=== PATIENT | male | born 1960 | race African-American/Black ===

== ENCOUNTER 2018-12-30 02:45 | Emergency (ER) | payer OTHER ==
[~2018-12-30] VITALS: Ht 157.5 cm; Wt 82.0 kg
[2018-12-30] MEDS ORDERED: METHYLPREDNISOLONE SOD SUCC 125 MG/2 ML VIAL IV STA (03:06)
[2018-12-30] MEDS ORDERED: MAGNESIUM 2 G PREMIX 50 ML IV STA (03:06)
[2018-12-30] MEDS ORDERED: ALBUTEROL (0.083%) 2.5MG/3ML NEB HHN STA (03:06)
[2018-12-30] MEDS ORDERED: IPRATROPIUM BROMIDE (0.02%) 0.5MG/2.5ML NEB HHN STA (03:06)
[2018-12-30 04:26] LABS: HEMATOCRIT 43.1 % (42.0-52.0); HEMOGLOBIN 13.9 g/dL (14.0-18.0); MEAN CORPUSCULAR HEMOGLOBIN 29.3 pg (28.0-32.0); MEAN CORPUSCULAR VOLUME 90.7 fL (80.0-94.0); PLATELET 215 x1000/uL (130-400); RED BLOOD CELL COUNT 4.75 mill/uL (4.7-6.1); RED CELL DISTRIBUTION WIDTH 13.7 % (11.6-14.6)
[2018-12-30 04:33] LABS: CHLORIDE 107 mEq/L (98-107)
[2018-12-30] MEDS ORDERED: LEVOFLOXACIN 750MG PREMIX 150 ML IV SCH (05:00)
[2018-12-30] MEDS ORDERED: SODIUM CHLORIDE 0.9% 1000ML BAG (SEPSIS BOLUS) IV ONE (08:15)
[2018-12-30 08:35] VITALS: BP 106/67
== END 2018-12-30 08:52 | disposition short-term general hospital (02) ==
LOC: ER 02:45 → EDBEDREQTM 05:10 → EDBEDREQ 05:10 → ER 08:52 → CANBEDREQ 09:59
DX: R06.02 Shortness of breath (principal); R06.2 Wheezing; J44.9 Chronic obstructive pulmonary disease, unspecified; F17.200 Nicotine dependence, unspecified, uncomplicated
CPT/HCPCS: 36415; 71045; 80053; 83605; 85027; 87040; 93005; 94640; 96365; 96366; 96367; 96375; 99291; J1956; J2930; J3475; J7030; J7611

== ENCOUNTER 2019-11-27 00:41 | Emergency (ER) | payer OTHER ==
[~2019-11-27] VITALS: Ht 172.7 cm; Wt 87.0 kg
[2019-11-27] MEDS ORDERED: HYDROCODONE/ACETAMINOPHEN 5/325MG TABLET PO ONE (01:15)
[2019-11-27 01:29] LABS: BASOPHILS % 1.3 % (0.0-2.0); EOSINOPHILS % 3.7 % (0.0-5.0); HEMATOCRIT. 43.4 % (42.0-52.0); HEMOGLOBIN. 14.3 g/dL (14.0-18.0); MEAN CORPUSCULAR HEMOGLOBIN 29.9 pg (28.0-32.0); MEAN CORPUSCULAR VOLUME 90.8 fL (80.0-94.0); MEAN PLATELET VOLUME 7.8 fl (7.4-10.4); PLATELET 243 x1000/uL (130-400); RED BLOOD CELL COUNT 4.78 mill/uL (4.7-6.1); RED CELL DISTRIBUTION WIDTH 14.7 % (11.6-14.6)
[2019-11-27 01:34] LABS: CHLORIDE 108 mEq/L (98-107)
[2019-11-27] MEDS ORDERED: POLYETHYLENE GLYCOL 3350 (17GM) 1 DOSE PACK PO ONE (02:30)
[2019-11-27 02:48] VITALS: BP 135/66
== END 2019-11-27 05:05 | disposition home or self-care (01) ==
LOC: ER 00:55
DX: R10.32 Left lower quadrant pain (principal); R10.12 Left upper quadrant pain; J44.9 Chronic obstructive pulmonary disease, unspecified; G20 Parkinson's disease; F99 Mental disorder, not otherwise specified; Z86.11 Personal history of tuberculosis
CPT/HCPCS: 36415; 74176; 80053; 83690; 85025; 99284; Z7610